=== PATIENT | male | born 1965 | race African-American/Black ===

== ENCOUNTER 2017-07-27 22:14 | Emergency (ER) | payer MEDICAID ==
[~2017-07-27] VITALS: Ht 180.3 cm; Wt 77.1 kg
[~2017-07-27 22:14] MED LIST: IBUPROFEN600 MG ORAL; NKM; NORCO 5-325 TA1 EACH ORAL; ROBAXIN-750750 MG PO
[2017-07-27 22:33] VITALS: BP 115/71
[2017-07-27] MEDS ORDERED: ROBAXIN-750750 MG PO (22:37)
[2017-07-27] MEDS ORDERED: CLARITIN10 M2 ORAL (22:37)
[2017-07-27] MEDS ORDERED: NAPROXEN500 M2 ORAL (22:37)
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
[2017-07-27 23:10] VITALS: BP 1/1
--- NOTE | 2017-07-28 21:48 | Diagnostic Imaging Report ---
Indication: Dyspnea Comparison: None A single view chest radiograph was obtained. Findings: Cardiomediastinal appearance is within normal limits for age. Pulmonary vascularity is appropriate. The diaphragmatic contour is smooth and costophrenic angles are sharp. No pleural effusions are identified. The bones are osteopenic. Impression: No acute findings
--- NOTE | 2017-07-28 21:48 | Diagnostic Imaging Report ---
Indication: Neck Pain Findings: 3 views of the cervical spine were obtained. There is osteophyte formation and narrowing of the C6-7 disc. There is loss of cervical lordosis. No fracture seen. Bones are osteopenic. IMPRESSION: No acute injury.
== END 2017-07-27 23:10 | disposition home or self-care (01) ==
LOC: EMR 22:20
DX: S16.1XXA Strain of muscle, fascia and tendon at neck level, initial encounter (principal); S46.911A Strain of unspecified muscle, fascia and tendon at shoulder and upper arm level, right arm, initial encounter; V89.2XXA Person injured in unspecified motor-vehicle accident, traffic, initial encounter; Y93.9 Activity, unspecified; Y99.9 Unspecified external cause status; M54.2 Cervicalgia; Z98.61 Coronary angioplasty status
CPT/HCPCS: 71045; 72050; 99283